=== PATIENT | male | born 1945 | race American Indian/Alaskan Native ===

== ENCOUNTER 2017-08-11 16:11 | Emergency (ER) | payer OTHER ==
[~2017-08-11] VITALS: Ht 162.6 cm; Wt 54.4 kg
[2017-08-11] MEDS ORDERED: CARBAMIDE PEROXIDE 6.5% OTIC SOLUTION 15ML BOTTLE. AS ONE (16:45)
--- NOTE | 2017-08-11 16:55 | PHYS DOC ---
Past Medical History Past Medical History: No Pertinent History Past Surgical History: Other Additional Past Surgical Histo: EYE SURG Alcohol Use: None Drug Use: None Adult General Chief Complaint Chief Complaint: EARACHE/EAR PAIN HPI HPI Patient is a 71 year old male presents to the emergency department stating that he's been having left ear pain and discomfort with decreased hearing. He also states that he's been having a frontal sinus headache as well as a cough this been nonproductive productive. Patient is being provided with interpretation via family member at the bedside. Patient denies any fever, chills or any nausea vomiting. Review of Systems Review of Systems Constitutional: Denies fever or chills [] Eyes: Denies change in visual acuity, redness, or eye pain [] HENT: Denies nasal congestion or sore throat. Complaint of left ear pain and discomfort. Respiratory: Denies cough or shortness of breath [] Cardiovascular: No additional information not addressed in HPI [] GI: Denies abdominal pain, nausea, vomiting, bloody stools or diarrhea [] : Denies dysuria or hematuria [] Musculoskeletal: Denies back pain or joint pain [] Integument: Denies rash or skin lesions [] Neurologic: Denies headache, focal weakness or sensory changes [] Endocrine: Denies polyuria or polydipsia [] Current Medications Current Medications Current Medications Medications (Trade) Dose Ordered Sig/Criselda Start Time Stop Time Status Last Admin Dose Admin Carbamide Peroxide (Debrox) 5 drop 1X ONCE 08/11/17 16:45 08/11/17 16:46 DC 08/11/17 16:45 5 DROP Allergies Allergies Allergies Coded Allergies Type Severity Reaction Last Updated Verified No Known Drug Allergies 08/11/17 No Physical Exam Physical Exam Constitutional: Well developed, well nourished, no acute distress, non-toxic appearance. [] HENT: Normocephalic, atraumatic, bilateral external ears normal, oropharynx moist, no oral exudates, nose normal. Right tympanic membranes appears to be normal, left tympanic membrane unable to visualize due to cerumen impaction. Eyes: PERRLA, EOMI, conjunctiva normal, no discharge. [] Neck: Normal range of motion, no tenderness, supple, no stridor. [] Cardiovascular:Heart rate regular rhythm, no murmur [] Lungs & Thorax: Bilateral breath sounds clear to auscultation [] Skin: Warm, dry, no erythema, no rash. [] Back: No tenderness Extremities: No tenderness, no cyanosis, no clubbing, ROM intact, no edema. [] Neurologic: Alert and oriented X 3, normal motor function, normal sensory function, no focal deficits noted. [] Psychologic: Affect normal, judgement normal, mood normal. [] Current Patient Data Vital Signs Vital Signs Date Time Temp Pulse Resp B/P (MAP) Pulse Ox O2 Delivery O2 Flow Rate FiO2 08/11/17 16:16 97.8 101 22 146/97 (113) 95 Room Air 97.8 EKG EKG [] Radiology/Procedures Radiology/Procedures [] Course & Med Decision Making Course & Med Decision Making Pertinent Labs and Imaging studies reviewed. (See chart for details) Left ear was irrigated with water and hydrogen peroxide after Debrox and then placed. Large chunks of cerumen was obtained. Patient states that he is able to hear out of the ear much better now. The areas very irritated due to the irrigation and the cerumen that was in place. The cerumen appears to be very hard in nature. Patient will be discharged home with ear drops in which she can use to help with the redness and discomfort. Recommended Tylenol or ibuprofen for pain and discomfort. Signs and symptoms to return back to emergency parents been provided. Also recommended Debrox to be used as directed by the polymer materials consultant [id number]. Signs symptoms to return back to emergency prior has been provided. Patient agrees with discharge instructions, treatment regimens and follow-up recommendations. All questions and concerns been answered at patient's bedside. [] Dragon Disclaimer Dragon Disclaimer This electronic medical record was generated, in whole or in part, using a voice recognition dictation system. Departure Departure Impression: Primary Impression: Impacted cerumen of left ear Disposition: 01 HOME, SELF-CARE Condition: STABLE Referrals: KEO SETHI MD (PCP) Patient Instructions: Cerumen Impaction Additional Instructions: Activity as tolerated. Tylenol or ibuprofen for pain and discomfort. Medication as prescribed for the next 5-7 days. Tylenol or ibuprofen for pain and discomfort. You may purchase Debrox [id number] and use as directed by the polymer materials consultant. Follow-up with a primary care physician next 5-7 days. Return back to emergency prior signs symptoms of become worse. Scripts Ciprofloxacin Hcl/Dexameth (CIPRODEX OTIC SUSPENSION) 7.5 Ml Drops.susp 4 DROP BID, #7.5 ML Prov: EDUIN ADAMSON APRN 08/11/17 EDUIN ADAMSON APRN Aug 11, 2017 16:55
[2017-08-11] MEDS ORDERED: CIPR7.5D AS (17:08)
[2017-08-11 17:21] VITALS: BP 111/71
== END 2017-08-11 17:21 | disposition home or self-care (01) ==
LOC: ER 16:11
DX: H61.22 Impacted cerumen, left ear (principal); R05 Cough; R51 Headache
CPT/HCPCS: 69209; 99283

== ENCOUNTER 2017-12-12 19:10 | Emergency (ER) | payer OTHER ==
[2017-12-12 19:43] LABS: ADD MAN DIFF? NO
[2017-12-12 19:47] LABS: BASO % 1 % (0-3); EOS # 0.1 x10^3/uL (0.0-0.7); EOS % 3 % (0-3); HEMATOCRIT 43.4 % (39.0-53.0); LYMPH # 1.5 x10^3/uL (1.0-4.8); LYMPH % 32 % (24-48); MEAN CORPUSCULAR HEMOGLOBIN 30 pg (25-35); MEAN CORPUSCULAR HGB CONC 35 g/dL (31-37); MEAN CORPUSCULAR VOLUME 87 fL (79-100); MONO # 0.4 x10^3/uL (0.0-1.1); MONO % 9 % (0-9); NEUT # 2.7 x10^3uL (1.8-7.7); NEUT % 56 % (31-73); PLATELET COUNT 220 x10^3/uL (140-400); RED BLOOD COUNT 4.99 x10^6/uL (4.30-5.70); RED CELL DISTRIBUTION WIDTH 13.8 % (11.5-14.5); WHITE BLOOD COUNT 4.8 x10^3/uL (4.0-11.0)
[2017-12-12 19:54] LABS: ANION GAP 10 (6-14); BLOOD UREA NITROGEN 10 mg/dL (8-26); BUN/CREATININE RATIO 14 (6-20); CALCIUM 8.4 mg/dL (8.5-10.1); CARBON DIOXIDE 28 mmol/L (21-32); CHLORIDE 102 mmol/L (98-107); CREATININE 0.7 mg/dL (0.7-1.3); GFR 110.5; GLUCOSE 103 mg/dL (70-99); POTASSIUM 3.8 mmol/L (3.5-5.1); SODIUM 140 mmol/L (136-145)
[2017-12-12] MEDS: KETOROLAC 30 MG/ML INJ. IV (19:59)
[2017-12-12] MEDS: IV NORMAL SALINE 1000ML BAG 1,000 ML IV (19:59)
[2017-12-12 20:04] LABS: ALBUMIN 3.5 g/dL (3.4-5.0); ALK PHOS 155 U/L (46-116); ALT (SGPT) 27 U/L (16-63); AST (SGOT) 20 U/L (15-37); TOTAL BILIRUBIN 0.4 mg/dL (0.2-1.0)
[2017-12-12 20:32] LABS: INFLUENZA A PATIENT NEGATIVE (NEGATIVE); INFLUENZA B PATIENT NEGATIVE (NEGATIVE); OBC FLU VALID
== END 2017-12-12 21:02 | disposition home or self-care (01) ==
LOC: ER 19:10
DX: J18.9 Pneumonia, unspecified organism (principal); I10 Essential (primary) hypertension
CPT/HCPCS: 36415; 71045; 80053; 85025; 87804; 87804-59; 96361; 96374; 99285-25; J1885; J7030

== ENCOUNTER 2020-01-06 18:43 | Emergency (ER) | payer OTHER ==
[~2020-01-06] VITALS: Ht 160 cm; Wt 56.7 kg
[~2020-01-06 18:43] MED LIST: AZIT250T6 PO; CIPR7.5D AS
[2020-01-06] MEDS ORDERED: IV NORMAL SALINE 1000ML BAG 1,000 ML IV ONE (21:00)
--- NOTE | 2020-01-06 21:01 | RAD ---
AP chest. HISTORY: Short of breath, cough AP view was taken of the chest. Heart is normal in size. There is no pleural effusion. There are no confluent infiltrates. IMPRESSION: 1. No acute chest disease. Electronically signed by: Paulo Kilgore MD (01/06/2020 8:58 PM) [id number]
--- NOTE | 2020-01-06 21:14 | PHYS DOC ---
Past Medical History Past Medical History: No Pertinent History Past Surgical History: Other Additional Past Surgical Histo: EYE SURG Smoking Status: Former Smoker Alcohol Use: None Drug Use: None Adult General Chief Complaint Chief Complaint: FLU SYMPTOM HPI HPI 74-year-old male presents to the emergency department with multiple complaints. Patient describes fever, headache, elevated blood pressure, weakness, vomiting. Symptoms have been ongoing 3 days. Family states they've been using [id number] medications however has had no improvement. Patient denies any sick contacts. Nothing makes his symptoms better. Patient denies any abdominal pain, chest pain, shortness of breath. Review of Systems Review of Systems Constitutional: Denies fever or chills [] Respiratory: Denies cough or shortness of breath [] Cardiovascular: No additional information not addressed in HPI [] GI: Denies abdominal pain, + nausea, vomiting, no bloody stools or diarrhea [] : Denies dysuria or hematuria [] Musculoskeletal: Denies back pain or joint pain [] Neurologic: Denies headache, focal weakness or sensory changes [] All other systems were reviewed and found to be within normal limits, except as documented in this note. Current Medications Current Medications Current Medications Medications (Trade) Dose Ordered Sig/Criselda Start Time Stop Time Status Last Admin Dose Admin Info (CONTRAST GIVEN -- Rx MONITORING) 1 each PRN DAILY PRN 01/06/20 22:00 01/08/20 21:59 Iohexol (Omnipaque 300 Mg/ml) 75 ml 1X ONCE 01/06/20 22:30 01/06/20 22:31 DC 01/06/20 22:20 75 ML Ketorolac Tromethamine (Toradol 15mg Vial) 15 mg 1X ONCE 01/06/20 22:15 01/06/20 22:16 DC 01/06/20 22:56 15 MG Metoclopramide HCl (Reglan Vial) 10 mg 1X ONCE 01/06/20 22:15 01/06/20 22:16 DC 01/06/20 22:55 10 MG Sodium Chloride 1,000 ml @ 1,000 mls/hr 1X ONCE 01/06/20 21:00 01/06/20 21:59 DC 01/06/20 21:12 1,000 MLS/HR Allergies Allergies Allergies Coded Allergies Type Severity Reaction Last Updated Verified No Known Drug Allergies 08/11/17 No Physical Exam Physical Exam Constitutional: Well developed, well nourished, no acute distress, non-toxic appearance. [] HENT: Normocephalic, atraumatic, bilateral external ears normal, oropharynx moist, no oral exudates, nose normal. [] Eyes: PERRLA, EOMI, conjunctiva normal, no discharge. [] Cardiovascular:Heart rate regular rhythm, no murmur [] Lungs & Thorax: Bilateral breath sounds clear to auscultation [] Abdomen: Bowel sounds normal, soft, no tenderness, no masses, no pulsatile masses. [] Skin: Warm, dry, no erythema, no rash. [] Back: No tenderness, no CVA tenderness. [] Extremities: No tenderness, no edema. [] Neurologic: Alert and oriented X 3, no focal deficits noted. [] Psychologic: Affect normal, judgement normal, mood normal. [] Current Patient Data Vital Signs Vital Signs Date Time Temp Pulse Resp B/P (MAP) Pulse Ox O2 Delivery O2 Flow Rate FiO2 01/06/20 21:44 98.3 99 20 166/98 (120) 92 Room Air 98.3 Lab Values Laboratory Tests Test 01/06/20 20:54 01/06/20 21:11 01/06/20 22:20 Influenza Type A Antigen Negative (NEGATIVE) Influenza Type B Antigen Negative (NEGATIVE) White Blood Count 10.9 x10^3/uL (4.0-11.0) Red Blood Count 5.05 x10^6/uL (4.30-5.70) Hemoglobin 15.3 g/dL (13.0-17.5) Hematocrit 43.5 % (39.0-53.0) Mean Corpuscular Volume 86 fL (79-100) Mean Corpuscular Hemoglobin 30 pg (25-35) Mean Corpuscular Hemoglobin Concent 35 g/dL (31-37) Red Cell Distribution Width 13.8 % (11.5-14.5) Platelet Count 229 x10^3/uL (140-400) Neutrophils (%) (Auto) 83 % (31-73) H Lymphocytes (%) (Auto) 10 % (24-48) L Monocytes (%) (Auto) 6 % (0-9) Eosinophils (%) (Auto) 1 % (0-3) Basophils (%) (Auto) 0 % (0-3) Neutrophils # (Auto) 9.1 x10^3/uL (1.8-7.7) H Lymphocytes # (Auto) 1.1 x10^3/uL (1.0-4.8) Monocytes # (Auto) 0.6 x10^3/uL (0.0-1.1) Eosinophils # (Auto) 0.1 x10^3/uL (0.0-0.7) Basophils # (Auto) 0.0 x10^3/uL (0.0-0.2) Sodium Level 137 mmol/L (136-145) Potassium Level 4.1 mmol/L (3.5-5.1) Chloride Level 102 mmol/L (98-107) Carbon Dioxide Level 24 mmol/L (21-32) Anion Gap 11 (6-14) Blood Urea Nitrogen 8 mg/dL (8-26) Creatinine 0.8 mg/dL (0.7-1.3) Estimated GFR (Cockcroft-Gault) 94.2 BUN/Creatinine Ratio 10 (6-20) Glucose Level 106 mg/dL (70-99) H Calcium Level 8.6 mg/dL (8.5-10.1) Total Bilirubin 0.6 mg/dL (0.2-1.0) Aspartate Amino Transferase (AST) 34 U/L (15-37) Alanine Aminotransferase (ALT) 33 U/L (16-63) Alkaline Phosphatase 180 U/L (46-116) H Total Protein 7.3 g/dL (6.4-8.2) Albumin 3.4 g/dL (3.4-5.0) Albumin/Globulin Ratio 0.9 (1.0-1.7) L Urine Collection Type Unknown Urine Color Yellow Urine Clarity Clear Urine pH 7.0 Urine Specific [place] 1.010 Urine Protein Negative mg/dL (NEG-TRACE) Urine Glucose (UA) Negative mg/dL (NEG) Urine Ketones (Stick) Negative mg/dL (NEG) Urine Blood Negative (NEG) Urine Nitrite Negative (NEG) Urine Bilirubin Negative (NEG) Urine Urobilinogen Dipstick 0.2 mg/dL (0.2 mg/dL) Urine Leukocyte Esterase Moderate (NEG) Urine RBC Rare /HPF (0-2) Urine WBC 11-20 /HPF (0-4) Urine Squamous Epithelial Cells Few /LPF Urine Amorphous Sediment Present /HPF Urine Bacteria 0 /HPF (0-FEW) Urine Mucus Slight /LPF Laboratory Tests 01/06/20 21:11 Laboratory Tests 01/06/20 21:11 EKG EKG [] Radiology/Procedures Radiology/Procedures [facility] [address] [place] [address] IMAGING REPORT Signed PATIENT: LIDYA VARGAS ACCOUNT: [id number] : 1945 LOCATION: ER AGE: 74 SEX: M EXAM STATUS: REG ER ORD. PHYSICIAN: LEIGHTON REYES MD REASON: SOB/COugh PROCEDURE: CHEST AP ONLY AP chest. HISTORY: Short of breath, cough AP view was taken of the chest. Heart is normal in size. There is no pleural effusion. There are no confluent infiltrates. IMPRESSION: 1. No acute chest disease. Electronically signed by: Paulo Kilgore MD (01/06/2020 8:58 PM) [id number] DICTATED and SIGNED BY: PAULO KILGORE MD DATE: 01/06/202057 [] [facility] [address] [place] [address] IMAGING REPORT Signed PATIENT: LIDYA VARGAS ACCOUNT: [id number] : 1945 LOCATION: ER AGE: 74 SEX: M EXAM STATUS: REG ER ORD. PHYSICIAN: LEIGHTON REYES MD REASON: abdominal pain, fever, OMNI 300, 75 ML IV PROCEDURE: CT ABD PELV W/ IV CONTRST ONLY Exam: CT of abdomen and pelvis with contrast INDICATION: Abdominal pain TECHNIQUE: Sequential axial images through the abdomen and pelvis obtained following the administration of 75 mL of Omni 300 IV contrast. Sagittal and coronal reformatted images were reconstructed from the axial data and reviewed. Comparisons: None FINDINGS: Heart size is normal. No pericardial effusion. Patchy airspace disease at the dependent portion the lungs bilaterally, likely atelectasis. No pleural effusion Or, spleen, pancreas, gallbladder and adrenals are unremarkable. Kidneys demonstrate symmetric enhancement. No perinephric inflammation or hydronephrosis. No renal or ureteral calculi are identified. Bladder is distended and appears thin-walled. Prostate is not enlarged. Large and small bowel are unremarkable. Appendix is normal. No free abdominal air or fluid. No obstruction. Abdominal aorta has a normal course and caliber. Abdominal vasculature is patent. No enlarged abdominal lymph nodes are identified. Wedging of the L1 vertebral body. No suspicious osseous lesions. IMPRESSION: No acute process identified in the abdomen or pelvis. Exposure: One or more of the following in the visualized dose reduction techniques were utilized for this examination: 1. Automated exposure control 2. Adjustment of the MA and/or KV according to patient size 3. Use of iterative of reconstructive technique Electronically signed by: Mini Hamilton MD (01/06/2020 10:56 PM) [id number] DICTATED and SIGNED BY: MINI HAMILTON MD DATE: 01/06/20 2256 Course & Med Decision Making Course & Med Decision Making Pertinent Labs and Imaging studies reviewed. (See chart for details) []74-year-old male presents to the emergency department with multiple complaints. Patient describes fever, headache, elevated blood pressure, weakness, vomiting. Symptoms have been ongoing 3 days. Family states they've been using [id number] medications however has had no improvement. Patient denies any sick contacts. Nothing makes his symptoms better. Patient denies any abdominal pain, chest pain, shortness of breath. Labs/Imaging reviewed No acute findings on lab to account for symptoms Likely viral in nature Thumb spica splint placed to right thumb Recommend dc home Dragon Disclaimer Dragon Disclaimer This electronic medical record was generated, in whole or in part, using a voice recognition dictation system. Departure Departure Impression: Primary Impression: Viral syndrome Additional Impression: Thumb fracture Disposition: 01 HOME, SELF-CARE Condition: STABLE Referrals: KEO SETHI MD (PCP) Patient Instructions: Thumb Fracture, Viral Syndrome Additional Instructions: CT of abdomen and pelvis negative Xray of right thumb with fracture - thumb spica applied Ortho follow up - Dr. Shoshana Fam without acute signs of infection on exam Tylenol/Motrin as needed for pain/fever Return to the ER with worsening symptoms, altered mental status Problem Qualifiers Additional Impression: Thumb fracture Encounter type: initial encounter Fracture type: closed Phalanx: distal Fracture alignment: nondisplaced Laterality: right Qualified Codes: S62.524A - Nondisplaced fracture of distal phalanx of right thumb, initial encounter for closed fracture LEIGHTON REYES MD Jan 06, 2020 21:14
[2020-01-06 21:15] LABS: INFLUENZA A PATIENT NEGATIVE (NEGATIVE); INFLUENZA B PATIENT NEGATIVE (NEGATIVE)
[2020-01-06 21:30] LABS: BASO % 0 % (0-3); CALCIUM 8.6 mg/dL (8.5-10.1); CREATININE 0.8 mg/dL (0.7-1.3); EOS # 0.1 x10^3/uL (0.0-0.7); EOS % 1 % (0-3); GFR 94.2; HEMATOCRIT 43.5 % (39.0-53.0); HEMOGLOBIN 15.3 g/dL (13.0-17.5); LYMPH # 1.1 x10^3/uL (1.0-4.8); LYMPH % 10 % (24-48); MEAN CORPUSCULAR HEMOGLOBIN 30 pg (25-35); MEAN CORPUSCULAR HGB CONC 35 g/dL (31-37); MEAN CORPUSCULAR VOLUME 86 fL (79-100); MONO # 0.6 x10^3/uL (0.0-1.1); MONO % 6 % (0-9); NEUT # 9.1 x10^3/uL (1.8-7.7); NEUT % 83 % (31-73); PLATELET COUNT 229 x10^3/uL (140-400); POTASSIUM 4.1 mmol/L (3.5-5.1); RED BLOOD COUNT 5.05 x10^6/uL (4.30-5.70); RED CELL DISTRIBUTION WIDTH 13.8 % (11.5-14.5); WHITE BLOOD COUNT 10.9 x10^3/uL (4.0-11.0)
[2020-01-06 21:35] LABS: ALBUMIN 3.4 g/dL (3.4-5.0); ALBUMIN/GLOBULIN RATIO 0.9 (1.0-1.7); TOTAL BILIRUBIN 0.6 mg/dL (0.2-1.0); TOTAL PROTEIN 7.3 g/dL (6.4-8.2)
[2020-01-06] MEDS ORDERED: CONTRAST GIVEN. MC PRN (22:00)
[2020-01-06] MEDS ORDERED: METOCLOPRAMIDE HCL 10 MG/2 ML VIAL. IVP ONE (22:15)
[2020-01-06] MEDS ORDERED: KETOROLAC 15 MG/ML VIAL. IVP ONE (22:15)
[2020-01-06] MEDS ORDERED: IOHEXOL 300 MG/ML 100ML VIAL. IV ONE (22:30)
[2020-01-06 22:53] LABS: BILIRUBIN,URINE NEGATIVE (NEG); CLARITY,URINE CLEAR; COLOR,URINE YELLOW; NITRITE,URINE NEGATIVE (NEG); PROTEIN,URINE NEGATIVE (NEG-TRACE); UROBILINOGEN,URINE 0.2 mg/dL (0.2 mg/dL)
[2020-01-06 22:57] LABS: SQUAMOUS EPITHELIAL CELL,UR FEW /LPF
[2020-01-06 22:58] LABS: AMORPHOUS SEDIMENT,UR PRESENT /HPF; BACTERIA,URINE 0 /HPF (0-FEW); RBC,URINE RARE /HPF (0-2)
--- NOTE | 2020-01-06 22:59 | RAD ---
Exam: CT of abdomen and pelvis with contrast INDICATION: Abdominal pain TECHNIQUE: Sequential axial images through the abdomen and pelvis obtained following the administration of 75 mL of Omni 300 IV contrast. Sagittal and coronal reformatted images were reconstructed from the axial data and reviewed. Comparisons: None FINDINGS: Heart size is normal. No pericardial effusion. Patchy airspace disease at the dependent portion the lungs bilaterally, likely atelectasis. No pleural effusion Or, spleen, pancreas, gallbladder and adrenals are unremarkable. Kidneys demonstrate symmetric enhancement. No perinephric inflammation or hydronephrosis. No renal or ureteral calculi are identified. Bladder is distended and appears thin-walled. Prostate is not enlarged. Large and small bowel are unremarkable. Appendix is normal. No free abdominal air or fluid. No obstruction. Abdominal aorta has a normal course and caliber. Abdominal vasculature is patent. No enlarged abdominal lymph nodes are identified. Wedging of the L1 vertebral body. No suspicious osseous lesions. IMPRESSION: No acute process identified in the abdomen or pelvis. Exposure: One or more of the following in the visualized dose reduction techniques were utilized for this examination: 1. Automated exposure control 2. Adjustment of the MA and/or KV according to patient size 3. Use of iterative of reconstructive technique Electronically signed by: Mini Carey MD (01/06/2020 10:56 PM) [id number]
[2020-01-06] MEDS ORDERED: CEPH-264 PO (23:19)
[2020-01-06 23:23] VITALS: BP 132/79
--- NOTE | 2020-01-06 23:49 | RAD ---
Study: HAND RIGHT 2V Indication: Thumb injury. Comparison: None. Findings: Tiny focus of mineralization along the radial margin of the thumb MCP joint. No malalignment across this articulation. Mild prominence of the overlying soft tissues. Scattered relatively mild degenerative changes. Impression: Tiny focus of mineralization seen along the radial margin of the thumb MCP joint could conceivably represent an avulsion fracture fragment given mild prominence of the overlying soft tissues. No traumatic malalignment across this joint or elsewhere. Electronically signed by: COLIN WADSWORTH MD (01/06/2020 11:46 PM) [id number]
== END 2020-01-06 23:37 | disposition home or self-care (01) ==
LOC: ER 18:43
DX: S62.524A Nondisplaced fracture of distal phalanx of right thumb, initial encounter for closed fracture (principal); B34.9 Viral infection, unspecified; R11.2 Nausea with vomiting, unspecified; R50.9 Fever, unspecified; F17.200 Nicotine dependence, unspecified, uncomplicated; Z98.890 Other specified postprocedural states; X58.XXXA Exposure to other specified factors, initial encounter; Y93.89 Activity, other specified; Y92.89 Other specified places as the place of occurrence of the external cause; Y99.8 Other external cause status
CPT/HCPCS: 29125; 36415; 71045; 73120; 74177; 80053; 81001; 83605; 85025; 87086; 87804; 96361; 96374; 96375; 99285; J1885; J2765; J7030; Q9967

== ENCOUNTER 2020-09-27 20:58 | Emergency (ER) | payer OTHER ==
[~2020-09-27] VITALS: Ht 167.6 cm; Wt 77.0 kg
[~2020-09-27 20:58] MED LIST changes: +CEPH-264 PO
--- NOTE | 2020-09-27 21:07 | PHYS DOC ---
Past Medical History Past Medical History: No Pertinent History, Hypertension Past Surgical History: Other Additional Past Surgical Histo: EYE SURG Smoking Status: Former Smoker (QUIT MANY YEARS AGO) Alcohol Use: None Drug Use: None General Adult EDM: Chief Complaint: CHEST PAIN HPI: HPI: Patient is a 74 year old male who arrives with a chief complaint of left-sided abdominal pain. Pain began last night and is located left lower quadrant and radiates to the epigastric area. Pain is worse with palpation and movement. Patient had some nausea vomiting but no diarrhea. Patient also has some radiation of pain to the chest. Patient denies any shortness of breath. Patient denies any recent illnesses. Daughter states that he has had a cough for many months. Pain is moderate in severity becomes severe with palpation. Pain is described as a discomfort Review of Systems: Review of Systems: Constitutional: Denies fever or chills. [] Eyes: Denies change in visual acuity. [] HENT: Denies nasal congestion or sore throat. [] Respiratory: Denies cough or shortness of breath. [] Cardiovascular: Has some pain in the chest which radiates from abdomen GI: Complains of abdominal pain, nausea, vomiting but no diarrhea or blood in stools : Denies dysuria. [] Musculoskeletal: Denies back pain or joint pain. [] Integument: Denies rash. [] Neurologic: Denies headache, focal weakness or sensory changes. [] Endocrine: Denies polyuria or polydipsia. [] Lymphatic: Denies swollen glands. [] Psychiatric: Denies depression or anxiety. [] Heart Score: HEART Score for Chest Pain: HEART Score for Chest Pain Response (Comments) Value History Slighlty/Non-Suspicious 0 ECG Normal 0 Age > 65 2 Risk Factors 1 or 2 Risk Factors 1 Troponin < Normal Limit 0 Total 3 Risk Factors: Risk Factors: DM, Current or recent (<one month) smoker, HTN, HLP, family history of CAD, obesity. Risk Scores: Score 0 - 3: 2.5% MACE over next 6 weeks - Discharge Home Score 4 - 6: 20.3% MACE over next 6 weeks - Admit for Clinical Observation Score 7 - 10: 72.7% MACE over next 6 weeks - Early Invasive Strategies Current Medications: Current Medications Morphine Sulfate (Morphine Sulfate) 4 mg 1X ONCE IV Last administered on 11/5/20at 21:39; Start 09/27/20 at 21:30; Stop 09/27/20 at 21:31; Status DC Ondansetron HCl (Zofran) 4 mg 1X ONCE IVP Last administered on 09/27/20at 21:40; Start 09/27/20 at 21:30; Stop 09/27/20 at 21:31; Status DC Sodium Chloride 1,000 ml @ 1,000 mls/hr 1X ONCE IV Last administered on 09/27/20at 21:38; Start 09/27/20 at 21:30; Stop 09/27/20 at 22:29; Status DC Iohexol (Omnipaque 300 Mg/ml) 75 ml 1X ONCE IV Last administered on 09/27/20at 22:06; Start 09/27/20 at 22:00; Stop 09/27/20 at 22:01; Status DC Info (CONTRAST GIVEN -- Rx MONITORING) 1 each PRN DAILY PRN MC SEE COMMENTS; Start 09/27/20 at 22:00; Stop 09/29/20 at 21:59 Active Scripts Active Keflex (Cephalexin) 500 Mg Capsule 2 Cap PO Q12HR 5 Days Azithromycin Tablet (Azithromycin) 250 Mg Tablet 1 Pkg PO UD Ciprodex Otic Suspension (Ciprofloxacin Hcl/Dexameth) 7.5 Ml Drops.susp 4 Drop BID Allergies: Allergies: Allergies Coded Allergies Type Severity Reaction Last Updated Verified No Known Drug Allergies 08/11/17 No Physical Exam: PE: Constitutional: Well developed, well nourished, no acute distress, non-toxic appearance. [] HENT: Normocephalic, atraumatic, bilateral external ears normal, no trismus, nose normal. [] Eyes: PERRLA, EOMI, conjunctiva normal, no discharge. [] Neck: Normal range of motion, no tenderness, supple, no stridor. [] Cardiovascular:Heart rate regular rhythm, peripheral pulse intact cap refill is brisk Lungs & Thorax: Bilateral breath sounds clear, no respiratory distress Abdomen: Soft with moderate left lower quadrant tenderness without guarding or rebound. Possibly mildly distended bladder no pulsatile masses Skin: Warm, dry, no erythema, scattered abrasions to the abdomen chest and left upper extremity, no signs of superinfection Back: No tenderness, no CVA tenderness. [] Extremities: No tenderness, no cyanosis, no clubbing, ROM intact, no edema. [] Neurologic: Alert and oriented X 3, normal motor function, normal sensory fun ction, no focal deficits noted. [] Psychologic: Affect normal, judgement normal, mood normal. [] Current Patient Data: Labs: Laboratory Tests Test 09/27/20 21:10 09/27/20 22:35 White Blood Count 5.7 x10^3/uL Red Blood Count 4.96 x10^6/uL Hemoglobin 14.9 g/dL Hematocrit 42.6 % Mean Corpuscular Volume 86 fL Mean Corpuscular Hemoglobin 30 pg Mean Corpuscular Hemoglobin Concent 35 g/dL Red Cell Distribution Width 14.0 % Platelet Count 236 x10^3/uL Neutrophils (%) (Auto) 62 % Lymphocytes (%) (Auto) 28 % Monocytes (%) (Auto) 8 % Eosinophils (%) (Auto) 2 % Basophils (%) (Auto) 1 % Neutrophils # (Auto) 3.5 x10^3/uL Lymphocytes # (Auto) 1.6 x10^3/uL Monocytes # (Auto) 0.4 x10^3/uL Eosinophils # (Auto) 0.1 x10^3/uL Basophils # (Auto) 0.0 x10^3/uL Sodium Level 140 mmol/L Potassium Level 4.0 mmol/L Chloride Level 104 mmol/L Carbon Dioxide Level 25 mmol/L Anion Gap 11 Blood Urea Nitrogen 9 mg/dL Creatinine 0.7 mg/dL Estimated GFR (Cockcroft-Gault) 109.9 BUN/Creatinine Ratio 13 Glucose Level 116 mg/dL Lactic Acid Level 1.4 mmol/L Calcium Level 8.6 mg/dL Total Bilirubin 0.3 mg/dL Aspartate Amino Transf (AST/SGOT) 16 U/L Alanine Aminotransferase (ALT/SGPT) 20 U/L Alkaline Phosphatase 161 U/L Troponin I Quantitative < 0.017 ng/mL Total Protein 6.6 g/dL Albumin 3.5 g/dL Albumin/Globulin Ratio 1.1 Lipase 131 U/L Urine Collection Type Unknown Urine Color Yellow Urine Clarity Clear Urine pH 6.0 Urine Specific [place] 1.025 Urine Protein Negative mg/dL Urine Glucose (UA) Negative mg/dL Urine Ketones (Stick) Negative mg/dL Urine Blood Negative Urine Nitrite Negative Urine Bilirubin Negative Urine Urobilinogen Dipstick 0.2 mg/dL Urine Leukocyte Esterase Negative Urine RBC 0 /HPF Urine WBC 0 /HPF Urine Squamous Epithelial Cells Few /LPF Urine Bacteria 0 /HPF Current Medications Medications (Trade) Dose Ordered Sig/Criselda Route PRN Reason Start Time Stop Time Status Last Admin Dose Admin Morphine Sulfate (Morphine Sulfate) 4 mg 1X ONCE IV 09/27/20 21:30 09/27/20 21:31 DC 09/27/20 21:39 Ondansetron HCl (Zofran) 4 mg 1X ONCE IVP 09/27/20 21:30 09/27/20 21:31 DC 09/27/20 21:40 Sodium Chloride 1,000 ml @ 1,000 mls/hr 1X ONCE IV 09/27/20 21:30 09/27/20 22:29 DC 09/27/20 21:38 Iohexol (Omnipaque 300 Mg/ml) 75 ml 1X ONCE IV 09/27/20 22:00 09/27/20 22:01 DC 09/27/20 22:06 Info (CONTRAST GIVEN -- Rx MONITORING) 1 each PRN DAILY PRN MC SEE COMMENTS 09/27/20 22:00 09/29/20 21:59 Vital Signs: Vital Signs Date Time Temp Pulse Resp B/P (MAP) Pulse Ox O2 Delivery O2 Flow Rate FiO2 09/27/20 21:39 16 09/27/20 21:20 98.2 77 16 159/86 (110) 98 Room Air 98.2 EKG: EKG: [] EKG interpreted by me normal sinus rhythm with left axis deviation, normal intervals normal ST segments, rate of 82 Radiology/Procedures: Radiology/Procedures: [][facility] [address] [place], [place] [id number] IMAGING REPORT Signed PATIENT: LIDYA VARGAS ACCOUNT: [id number] : 1945 LOCATION: ER AGE: 74 SEX: M EXAM STATUS: REG ER ORD. PHYSICIAN: ZEENAT ARRIAGA MD REASON: LLQ PAIN PROCEDURE: CT ABD PELV W/ IV CONTRST ONLY Exam: CT abdomen/pelvis with intravenous contrast Indication: Left lower quadrant pain Comparison: CT abdomen and pelvis 01/06/2020 Technique: Helical CT imaging performed of the abdomen and pelvis after the intravenous administration of 75 mL Omnipaque 300 intravenous contrast. Sagittal and coronal reformats were obtained. One or more of the following individualized dose reduction techniques were utilized for this examination: 1. Automated exposure control 2. Adjustment of the mA and/or kV according to patient size 3. Use of iterative reconstruction technique. Findings: Lower chest: There are unchanged dependent groundglass opacities in the lower lobes. The heart is normal in size. Liver: Normal. Gallbladder/Biliary Tree: Normal. Pancreas: Normal. Spleen: Normal. Adrenal Glands: Normal. Kidneys/Ureters/Bladder: Kidneys are normal in size and enhance symmetrically. There is a subcentimeter hypodensity in the right kidney, likely simple cyst. No hydronephrosis. Ureters and bladder are unremarkable. Reproductive Organs: Prostate gland is mildly enlarged. Stomach, small bowel, and colon: Stomach is mildly distended. No small bowel obstruction. The appendix and colon are normal. Vasculature: Abdominal aorta is normal in caliber. Mild calcified aortoiliac atherosclerosis. Lymph Nodes: No lymphadenopathy. Peritoneum and retroperitoneum: No free fluid or free air. Bones: The bones are diffusely demineralized. There is an old L1 compression fracture with 75% vertebral body height loss anteriorly and 3 mm retropulsion of the posterior cortex. There is focal kyphosis at T12-L1. This is all unchanged from 01/06/2020.. Impression: No acute intra-abdominal/pelvic abnormality. Electronically signed by: Keyanna Dorsey MD (09/27/2020 10:47 PM) [id number] DICTATED and SIGNED BY: KEYANNA DORSEY MD DATE: 09/27/20 2247 [facility] [address] [place] [address] IMAGING REPORT Signed PATIENT: LIDYA VARGAS ACCOUNT: [id number] : 1945 LOCATION: ER AGE: 74 SEX: M EXAM STATUS: REG ER ORD. PHYSICIAN: ZEENAT ARRIAGA MD REASON: LLQ PAIN PROCEDURE: PORTABLE CHEST 1V EXAM: PORTABLE CHEST 1V 09/27/2020 9:13 PM CLINICAL INDICATION:Left lower quadrant pain COMPARISON:Chest radiograph 01/06/2020 TECHNIQUE:AP view of the chest FINDINGS:The heart and mediastinum are normal. Lungs are adequately expanded. There is mild bibasilar opacities. No pleural effusion or pneumothorax. An L1 compression fracture is redemonstrated. IMPRESSION:Mild bibasilar opacities, possibly atelectasis. Electronically signed by: Keyanna Dorsey MD (09/27/2020 11:38 PM) [id number] DICTATED and SIGNED BY: KEYANNA DORSEY MD DATE: 09/27/20 2338 Course & Med Decision Making: Course & Med Decision Making Pertinent Labs and Imaging studies reviewed. (See chart for details) [] 74-year-old male presents with abdominal pain. Patient has a soft and nonsurgical abdomen. But due to patient's age CT was done, the CT was u nremarkable for acute pathology although my review of his it appears his bladder was large. Nurses notes that he was not able to void much when he gave us a urine sample. Therefore a Wang catheter has been placed patient reassessed after Wang placed and pain is gone in his abdomen, his abdomen is soft nontender patient will go home with a Wang and a leg bag and follow-up with urology. Patient had some pain rating to his chest from his abdomen, this is very typical his heart score is 3, his EKG and troponin are unremarkable. Doubt acute coronary syndrome. Patient's white blood cells and lactic acid were normal, doubt ischemic colitis. Dragon Disclaimer: Dragon Disclaimer: This electronic medical record was generated, in whole or in part, using a voice recognition dictation system. Departure Departure Impression: Primary Impression: Abdominal pain Additional Impression: Urinary retention Disposition: 01 DC HOME SELF CARE/HOMELESS Condition: STABLE Ref[facility]: [facility] [address] [place] [address] KEO SETHI MD (PCP) Patient Instructions: Abdominal Pain, Wang Catheter Care, Adult, Urinary Retention, Acute, Male Additional Instructions: EMERGENCY DEPARTMENT GENERAL DISCHARGE INSTRUCTIONS THANK YOU for coming to [facility] Emergency Department (ED) today and trusting us with your care. We trust that you had a positive experience in our Emergency Department. If you wish to speak to the department Management you can contact [facility] supervisor forming department at . YOUR FOLLOW UP INSTRUCTIONS ARE FOLLOWS: Do you have a private doctor? If you do not have a private doctor, please ask for a resource list of physicians or clinics that may be able to assist you with follow up care. The Emergency Physician has interpreted your x-rays. The X-ray specialist will also review them. If there is a change in the findings you will be notified in 48 hours when at all possible. A lab test or lab culture may have been done, your results will be reviewed and you will be notified if you need a change in treatment. ADDITIONAL INSTRUCTIONS AND INFORMATION Your care today has been supervised by a physician who is specially trained in emergency care. Many problems require more than one evaluation for a complete diagnosis and treatment. We recommend that you schedule your follow up appointment as recommended to ensure complete treatment of your illness or injury. If you are unable to obtain follow up care and continue to have a problem, or if your condition worsens we recommend that you return to the ED. We are not able to safely determine your condition over the phone nor are we able to give sound medical advice over the phone. For these safety reasons, if you call for medical advice we will ask you to come to the ED for further evaluation If you have any questions regarding these discharge instructions please call the ED at . SAFETY INFORMATION In the interest of safety, wellness, and injury prevention; we encourage you to wear your seatbelt, if you smoke; quit smoking, and we encourage your family to use protective helmet for bicycling and other sporting events that present an increased risk for head injury. IF YOUR SYMPTOMS WORSEN OR NEW SYMPTOMS DEVELOP, OR YOU HAVE CONCERNS ABOUT YOUR CONDITION; OR IF YOUR CONDITION WORSENS WHILE YOU ARE WAITING FOR YOUR FOLLOW UP APPOIN TMENT; EITHER CONTACT YOUR PRIMARY CARE DOCTOR, THE PHYSICIAN WHOSE NAME AND NUMBER YOU WERE GIVEN, OR RETURN TO THE ED IMMEDIATELY. Follow-up with urology next week for catheter removal. Return if concerns, fever, worsening pain. Scripts Tamsulosin Hcl (FLOMAX) 0.4 Mg Cap.er.24h 0.4 MG PO DAILY for 7 Days, #7 TAB Prov: ZEENAT ARRIAGA MD 09/28/20 Hyoscyamine Sulfate (LEVSIN-SL) 0.125 Mg Tab.subl 0.125 MG SL Q6HRS for SPASM for 3 Days, #12 TAB Prov: ZEENAT ARRIAGA MD 09/28/20 ZEENAT ARRIAGA MD Sep 27, 2020 21:07
[2020-09-27 21:22] LABS: BASO % 1 % (0-3); EOS # 0.1 x10^3/uL (0.0-0.7); EOS % 2 % (0-3); HEMATOCRIT 42.6 % (39.0-53.0); HEMOGLOBIN 14.9 g/dL (13.0-17.5); LYMPH # 1.6 x10^3/uL (1.0-4.8); LYMPH % 28 % (24-48); MEAN CORPUSCULAR HEMOGLOBIN 30 pg (25-35); MEAN CORPUSCULAR HGB CONC 35 g/dL (31-37); MEAN CORPUSCULAR VOLUME 86 fL (79-100); MONO # 0.4 x10^3/uL (0.0-1.1); MONO % 8 % (0-9); NEUT # 3.5 x10^3/uL (1.8-7.7); NEUT % 62 % (31-73); PLATELET COUNT 236 x10^3/uL (140-400); RED BLOOD COUNT 4.96 x10^6/uL (4.30-5.70); WHITE BLOOD COUNT 5.7 x10^3/uL (4.0-11.0)
[2020-09-27] MEDS ORDERED: ONDANSETRON PF 4 MG/2 ML VIAL. IVP ONE (21:30)
[2020-09-27] MEDS ORDERED: IV NORMAL SALINE 1000ML BAG 1,000 ML IV ONE (21:30)
[2020-09-27] MEDS ORDERED: MORPHINE SULFATE 4 MG/ML VIAL. IV ONE (21:30)
[2020-09-27 21:31] LABS: CALCIUM 8.6 mg/dL (8.5-10.1); CREATININE 0.7 mg/dL (0.7-1.3); GFR 109.9
[2020-09-27 21:36] LABS: ALBUMIN 3.5 g/dL (3.4-5.0); ALBUMIN/GLOBULIN RATIO 1.1 (1.0-1.7); TOTAL BILIRUBIN 0.3 mg/dL (0.2-1.0); TOTAL PROTEIN 6.6 g/dL (6.4-8.2)
[2020-09-27] MEDS ORDERED: IOHEXOL 300 MG/ML 100ML VIAL. IV ONE (22:00)
[2020-09-27] MEDS ORDERED: CONTRAST GIVEN. MC PRN (22:00)
[2020-09-27 22:43] LABS: BILIRUBIN,URINE NEGATIVE (NEG); CLARITY,URINE CLEAR; COLOR,URINE YELLOW; NITRITE,URINE NEGATIVE (NEG); PROTEIN,URINE NEGATIVE (NEG-TRACE); UROBILINOGEN,URINE 0.2 mg/dL (0.2 mg/dL)
[2020-09-27 22:49] LABS: BACTERIA,URINE 0 /HPF (0-FEW); RBC,URINE 0 /HPF (0-2); WBC,URINE 0 /HPF (0-4)
--- NOTE | 2020-09-27 22:50 | RAD ---
Exam: CT abdomen/pelvis with intravenous contrast Indication: Left lower quadrant pain Comparison: CT abdomen and pelvis 01/06/2020 Technique: Helical CT imaging performed of the abdomen and pelvis after the intravenous administration of 75 mL Omnipaque 300 intravenous contrast. Sagittal and coronal reformats were obtained. One or more of the following individualized dose reduction techniques were utilized for this examination: 1. Automated exposure control 2. Adjustment of the mA and/or kV according to patient size 3. Use of iterative reconstruction technique. Findings: Lower chest: There are unchanged dependent groundglass opacities in the lower lobes. The heart is normal in size. Liver: Normal. Gallbladder/Biliary Tree: Normal. Pancreas: Normal. Spleen: Normal. Adrenal Glands: Normal. Kidneys/Ureters/Bladder: Kidneys are normal in size and enhance symmetrically. There is a subcentimeter hypodensity in the right kidney, likely simple cyst. No hydronephrosis. Ureters and bladder are unremarkable. Reproductive Organs: Prostate gland is mildly enlarged. Stomach, small bowel, and colon: Stomach is mildly distended. No small bowel obstruction. The appendix and colon are normal. Vasculature: Abdominal aorta is normal in caliber. Mild calcified aortoiliac atherosclerosis. Lymph Nodes: No lymphadenopathy. Peritoneum and retroperitoneum: No free fluid or free air. Bones: The bones are diffusely demineralized. There is an old L1 compression fracture with 75% vertebral body height loss anteriorly and 3 mm retropulsion of the posterior cortex. There is focal kyphosis at T12-L1. This is all unchanged from 01/06/2020.. Impression: No acute intra-abdominal/pelvic abnormality. Electronically signed by: Keyanna Dorsey MD (09/27/2020 10:47 PM) [id number]
--- NOTE | 2020-09-27 23:41 | RAD ---
EXAM: PORTABLE CHEST 1V 09/27/2020 9:13 PM CLINICAL INDICATION:Left lower quadrant pain COMPARISON:Chest radiograph 01/06/2020 TECHNIQUE:AP view of the chest FINDINGS:The heart and mediastinum are normal. Lungs are adequately expanded. There is mild bibasilar opacities. No pleural effusion or pneumothorax. An L1 compression fracture is redemonstrated. IMPRESSION:Mild bibasilar opacities, possibly atelectasis. Electronically signed by: Keyanna Dorsey MD (09/27/2020 11:38 PM) [id number]
[2020-09-28] MEDS ORDERED: HYOS0.1265 SL (00:46)
[2020-09-28] MEDS ORDERED: TAMS0.4C97 PO (00:46)
[2020-09-28 01:25] VITALS: BP 133/88
== END 2020-09-28 01:35 | disposition home or self-care (01) ==
LOC: ER 20:58
DX: R33.9 Retention of urine, unspecified (principal); R10.32 Left lower quadrant pain; R11.2 Nausea with vomiting, unspecified; R05 Cough; I10 Essential (primary) hypertension; Z87.891 Personal history of nicotine dependence; Z98.890 Other specified postprocedural states
CPT/HCPCS: 36415; 51702; 71045; 74177; 80053; 81001; 83605; 83690; 84484; 85025; 96361; 96374; 96375; 99285; J2270; J2405; J7030; Q9967

== ENCOUNTER 2021-06-09 21:54 | Emergency (ER) | payer OTHER ==
[~2021-06-09] VITALS: Ht 165.1 cm; Wt 64.5 kg
[~2021-06-09 21:54] MED LIST changes: +HYOS0.1265 SL; +TAMS0.4C97 PO
[2021-06-09] MEDS ORDERED: VANCOMYCIN PER PHARMACY MC PRN (22:30)
[2021-06-10 00:04] LABS: BASO % 0 % (0-3); EOS # 0.1 x10^3/uL (0.0-0.7); EOS % 2 % (0-3); HEMATOCRIT 44.8 % (39.0-53.0); HEMOGLOBIN 15.5 g/dL (13.0-17.5); LYMPH # 1.4 x10^3/uL (1.0-4.8); LYMPH % 23 % (24-48); MEAN CORPUSCULAR HEMOGLOBIN 30 pg (25-35); MEAN CORPUSCULAR HGB CONC 35 g/dL (31-37); MEAN CORPUSCULAR VOLUME 87 fL (79-100); MONO # 0.5 x10^3/uL (0.0-1.1); MONO % 8 % (0-9); NEUT % 67 % (31-73); PLATELET COUNT 236 x10^3/uL (140-400); RED BLOOD COUNT 5.17 x10^6/uL (4.30-5.70); RED CELL DISTRIBUTION WIDTH 13.5 % (11.5-14.5)
[2021-06-10 00:11] LABS: CALCIUM 8.9 mg/dL (8.5-10.1); CREATININE 0.7 mg/dL (0.7-1.3); GFR 109.6; POTASSIUM 3.9 mmol/L (3.5-5.1)
[2021-06-10 00:25] LABS: ALBUMIN 3.6 g/dL (3.4-5.0); TOTAL BILIRUBIN 0.5 mg/dL (0.2-1.0); TOTAL PROTEIN 7.1 g/dL (6.4-8.2)
[2021-06-10] MEDS ORDERED: IOHEXOL 300 MG/ML 100ML VIAL. IV ONE (00:45)
[2021-06-10] MEDS ORDERED: CONTRAST GIVEN. MC PRN (00:45)
--- NOTE | 2021-06-10 00:51 | RAD ---
CT NECK SOFT TISSUE WITH IV CONTRAST DATE: 06/09/2021 12:15 AM INDICATION: anterior neck rash/cellulitis TECHNIQUE: Axial computed tomography of the neck with intravenous contrast according to the standard neck protocol. 70 cc of Omnipaque 300 was administered intravenously. One or more of the following do se reduction techniques were utilized: Automated exposure control (AEC), Adjustment of mA and/or kV according to patient size, Use of iterative reconstruction technique such as ASiR, CT scan done accor ding to ALARA and image gently/image wisely COMPARISON: None. FINDINGS: No fluid collection. Scattered subcentimeter lymph nodes are seen in the neck. None are pathologicall y enlarged or abnormally enhancing. The parotid, submandibular, and thyroid glands are normal. The mu scles of the neck are normal. Vessels of the neck demonstrate normal course, caliber, and enhancement . Several dental caries are seen. The visualized posterior fossa and brain is unremarkable. The visualized orbits and paranasal sinuses are normal. Mild multilevel degenerative disc desiccation. Multilevel spinal canal stenosis secondary to disc pro trusions and marginal osteophytes. Multilevel neural foraminal narrowing secondary to uncovertebral a nd facet arthrosis. The visualized lung apices are clear. IMPRESSION: No neck mass or fluid collection. Several dental cavities are seen Electronically signed by: Alfred Medina MD (06/10/2021 12:49 AM) [facility]
--- NOTE | 2021-06-10 00:56 | PHYS DOC ---
Past Medical History Past Medical History: No Pertinent History, Hypertension Additional Past Medical Histor: GASTRIC REFLUX, PROSTATES ENLARGMENT, HEMEROIDS.2 LEGS INJURY CHILD Past Surgical History: Other Additional Past Surgical Histo: EYE SURG, PROSTATE SX ? UNKNOWN PROCEEDURE Smoking Status: Former Smoker Alcohol Use: None Drug Use: None General Adult EDM: Chief Complaint: DIFFICULTY SWALLOWING HPI: HPI: 75 yo M PMH HTN, GERD and enlarged prostate, presents to the ed with c/o sore throat, dry cough and redness to the front of the throat with decreased oral intake. In ed with caregiver (assists in translating belarusian, declined order planner phone) who reports pt didn't eat today. No known history of covid exposure. Denies any new medications or poorly prepared foods. No known food allergies. No history of allergic reaction, angioedema or anaphylaxis. Denies odynophagia. Review of Systems: Review of Systems: Constitutional: Denies fever or chills. [] Eyes: Denies change in visual acuity. [] HENT: Denies nasal congestion or rhinorrhea Respiratory: Denies cough or shortness of breath. [] Cardiovascular: Denies chest pain or edema. [] GI: Denies abdominal pain, nausea, vomiting, bloody stools or diarrhea. [] Musculoskeletal: Denies back pain or joint pain. [] Integument: Denies diaphoresis or desquamation Neurologic: Denies headache, focal weakness or sensory changes. [] Endocrine: Denies polyuria or polydipsia. [] Lymphatic: Denies swollen glands. [] Psychiatric: Denies depression or anxiety. [] Heart Score: C/O Chest Pain: No Risk Factors: Risk Factors: DM, Current or recent (<one month) smoker, HTN, HLP, family history of CAD, obesity. Risk Scores: Score 0 - 3: 2.5% MACE over next 6 weeks - Discharge Home Score 4 - 6: 20.3% MACE over next 6 weeks - Admit for Clinical Observation Score 7 - 10: 72.7% MACE over next 6 weeks - Early Invasive Strategies Current Medications: Current Medications Medications (Trade) Dose Ordered Sig/Criselda Start Time Stop Time Status Last Admin Dose Admin Info (CONTRAST GIVEN -- Rx MONITORING) 1 each PRN DAILY PRN 06/10/21 00:45 06/12/21 00:44 Iohexol (Omnipaque 300 Mg/ml) 70 ml 1X ONCE 06/10/21 00:45 06/10/21 00:46 DC 06/10/21 00:43 70 ML Vancomycin HCl (Vanco Per Pharmacy) 1 each PRN DAILY PRN 06/09/21 22:30 Vancomycin HCl 1.5 gm/Sodium Chloride 500 ml @ 250 mls/hr 1X ONCE 06/10/21 01:00 06/10/21 02:59 Allergies: Allergies: Allergies Coded Allergies Type Severity Reaction Last Updated Verified No Known Drug Allergies 08/11/17 No Physical Exam: PE: Constitutional: Well developed, well nourished, no acute distress, non-toxic appearance. HENT: Normocephalic, atraumatic, no swelling of tongue, lips or palate, no pharyngeal erythema, Mallampati 4, tonsils approximately 80% oropharyngeal opening w/no erythema/exudates/petechiae, no oral ulcers Eyes: EOMI, conjunctiva normal, no discharge, Neck: Normal range of motion, supple, anterior neck with 6 x 3 cm area of slightly raised erythema with increased warmth, no induration/foot fluctuance/subcutaneous emphysema, no brawny neck Cardiovascular: S1/2 present, regular rhythm Lungs & Thorax: Speaking in full sentences, bilateral equal chest rise, no tachypnea or increased work of breathing, no stridor, no hot potato voice, no dr ooling Abdomen: soft, no tenderness, Skin: Warm, dry, no blisters or desquamation Extremities: No tenderness, no cyanosis, Neurologic: Alert and oriented X 3, normal motor function, normal sensory function, no focal deficits noted. [] Psychologic: Affect normal, judgement normal, mood normal. [] Current Patient Data: Labs: Laboratory Tests Test 06/09/21 22:40 06/09/21 23:40 SARS-CoV-2 Antigen (Rapid) Negative (NEGATIVE) White Blood Count 6.0 x10^3/uL (4.0-11.0) Red Blood Count 5.17 x10^6/uL (4.30-5.70) Hemoglobin 15.5 g/dL (13.0-17.5) Hematocrit 44.8 % (39.0-53.0) Mean Corpuscular Volume 87 fL (79-100) Mean Corpuscular Hemoglobin 30 pg (25-35) Mean Corpuscular Hemoglobin Concent 35 g/dL (31-37) Red Cell Distribution Width 13.5 % (11.5-14.5) Platelet Count 236 x10^3/uL (140-400) Neutrophils (%) (Auto) 67 % (31-73) Lymphocytes (%) (Auto) 23 % (24-48) L Monocytes (%) (Auto) 8 % (0-9) Eosinophils (%) (Auto) 2 % (0-3) Basophils (%) (Auto) 0 % (0-3) Neutrophils # (Auto) 4.0 x10^3/uL (1.8-7.7) Lymphocytes # (Auto) 1.4 x10^3/uL (1.0-4.8) Monocytes # (Auto) 0.5 x10^3/uL (0.0-1.1) Eosinophils # (Auto) 0.1 x10^3/uL (0.0-0.7) Basophils # (Auto) 0.0 x10^3/uL (0.0-0.2) Sodium Level 138 mmol/L (136-145) Potassium Level 3.9 mmol/L (3.5-5.1) Chloride Level 103 mmol/L (98-107) Carbon Dioxide Level 27 mmol/L (21-32) Anion Gap 8 (6-14) Blood Urea Nitrogen 6 mg/dL (8-26) L Creatinine 0.7 mg/dL (0.7-1.3) Estimated GFR (Cockcroft-Gault) 109.6 BUN/Creatinine Ratio 9 (6-20) Glucose Level 98 mg/dL (70-99) Lactic Acid Level 1.3 mmol/L (0.4-2.0) Calcium Level 8.9 mg/dL (8.5-10.1) Total Bilirubin 0.5 mg/dL (0.2-1.0) Aspartate Amino Transferase (AST) 17 U/L (15-37) Alanine Aminotransferase (ALT) 27 U/L (16-63) Alkaline Phosphatase 152 U/L (46-116) H Total Protein 7.1 g/dL (6.4-8.2) Albumin 3.6 g/dL (3.4-5.0) Albumin/Globulin Ratio 1.0 (1.0-1.7) Laboratory Tests 06/09/21 23:40 Laboratory Tests 06/09/21 23:40 Vital Signs: Vital Signs Date Time Temp Pulse Resp B/P (MAP) Pulse Ox O2 Delivery O2 Flow Rate FiO2 06/09/21 22:27 98.1 72 18 160/84 (103) 94 Room Air 98.1 EKG: EKG: [] Radiology/Procedures: Radiology/Procedures: IMAGING REPORT Signed PATIENT: LIDYA VARGAS ACCOUNT: [id number] : 1945 LOCATION: ER AGE: 75 SEX: M EXAM STATUS: REG ER ORD. PHYSICIAN: NAHEED PAUL DO REASON: anterior neck rash/cellulitis PROCEDURE: CT SOFT TISSUE NECK W/CONTRAST CT NECK SOFT TISSUE WITH IV CONTRAST DATE: 06/09/2021 12:15 AM INDICATION: anterior neck rash/cellulitis TECHNIQUE: Axial computed tomography of the neck with intravenous contrast according to the standard neck protocol. 70 cc of Omnipaque 300 was administered intravenously. One or more of the following dose reduction techniques were utilized: Automated exposure control (AEC), Adjustment of mA and/or kV according to patient size, Use of iterative reconstruction technique such as ASiR, CT scan done according to ALARA and image gently/image wisely COMPARISON: None. FINDINGS: No fluid collection. Scattered subcentimeter lymph nodes are seen in the neck. None are pathologically enlarged or abnormally enhancing. The parotid, submandibular, and thyroid glands are normal. The muscles of the neck are normal. Vessels of the neck demonstrate normal course, caliber, and enhancement. Several dental caries are seen. The visualized posterior fossa and brain is unremarkable. The visualized orbits and paranasal sinuses are normal. Mild multilevel degenerative disc desiccation. Multilevel spinal canal stenosis secondary to disc protrusions and marginal osteophytes. Multilevel neural foraminal narrowing secondary to uncovertebral and facet arthrosis. The visualized lung apices are clear. IMPRESSION: No neck mass or fluid collection. Several dental cavities are seen Electronically signed by: Sandra Medina MD (06/10/2021 12:49 AM) [facility] DICTATED and SIGNED BY: SANDRA MEDINA MD DATE: 06/10/21 [id number] 0 Course & Med Decision Making: Course & Med Decision Making Pertinent Labs and Imaging studies reviewed. (See chart for details) Concern for acute pharyngitis in the setting of abnormal rash on anterior neck appears slightly raised, nonpruritic but increased in warmth-cannot recall any injury, scratching or bug bites. Will cover for MRSA cellulitis. Rapid Covid negative. Pharyngeal exudates or erythema or swelling-no signs of angioedema. Tolerates fluids in the ED. Cervical as needed for pain. Will discharge home with strict ED return precautions were given for altered breathing, headache swelling, drooling, speech changes or worsening rash. Encouraged urgent outpatient follow-up with PMD. Life-threatening processes were considered but are low suspicion at this time, given history, physical exam and ED workup. Pt was educated on all prescription medications and adverse effects. All patient's questions were answered and pt was stable at time of discharge. Life/limb-threatening differential includes but is not limited to, aortic dissection/aneurysm, cauda equina syndrome, transverse myelitis, spinal cord/epidural compression syndromes, discitis, spinal stenosis, epidural abscess or hematoma, osteomyelitis, disc herniation, surgical abdomen, stable or unstable fracture, renal/ureteral colic, sepsis, meningitis, musculoskeletal injury, traumatic injury, intraabdominal/retroperitoneal or pelvic bleeding. I have spoken with the patient and/or caregivers. I explained the patient's condition, diagnoses and treatment plan based on the information available to me at this time. I have answered the patient and/or caregiver's questions and addressed any concerns. The patient and/or caregivers have a good understanding of patient's diagnosis, condition and treatment plan as can be expected at this point. Vital signs have been stable. Patient's condition is stable and appropriate for discharge from the emergency department. Patient will pursue further outpatient evaluation with primary care physician or other designated or consulting physician as outlined in the discharge instructions. The patient and/or caregivers are agreeable to this plan of care and follow-up instructions have been explained in detail. The patient and/or caregivers have received these instructions in written form and have expressed an understanding of the discharge instructions. The patient and/or caregivers are aware that any significant change of condition or worsening of symptoms should prompt immediate return to this or the closest emergency department or call to 911. Argelia Disclaimer: Argelia Disclaimer: This electronic medical record was generated, in whole or in part, using a voice recognition dictation system. Departure Departure Impression: Primary Impression: Sore throat Additional Impression: Rash of neck Disposition: HOME / SELF CARE / HOMELESS Condition: STABLE Referrals: KEO SETHI MD (PCP) Follow-up with your primary care physician in 24 to 48 hours OR FOLLOW UP WITH FAMILY MEDICINE: [address] [place] [address] Patient Instructions: Cellulitis, Rash, Viral Pharyngitis Additional Instructions: EMERGENCY DEPARTMENT GENERAL DISCHARGE INSTRUCTIONS Thank you for coming to [facility] Emergency Department (ED) today and trusting us with you care. We trust that you had a positive experience in our Emergency Department. If you wish to speak to the department management, you may call the Director at [phone]. YOUR FOLLOW UP INSTRUCTIONS ARE FOLLOWS: 1. Do you have a private Doctor? If you do not have a private doctor, please ask for a resource list of physicians or clinics that may be able to assist you with follow up care. 2. The Emergency Physicain has interpreted your x-rays. The X-Ray specialist will also review them. If there is a change in the findings, you will be notified in 48 hours when at all possible. 3. A lab test or culture has been done, your results will be reviewed and you will be notified if you need a change in treatment. ADDITIONAL INSTRUCTIONS AND INFORMATION: 1. Your care today has been supervised by a physician who is specially trained in emergency care. Many problems require more than one evaluation for a complete diagnosis and treatment. We recommend that you schedule your follow up appointment as recommended to ensure complete treatment of you illness or injury. If you are unable to obtain follow up care and continue to have a problem, or if your condition worsens, we recommend that you return to the ED. 2. We are not able to safely determine your condition over the phone nor are we able to give sound medical advice over the phone. For these safety reasons, if you call for medical advice we will ask you to come to the ED for further evaluation. 3. If you have any questions regarding these discharge instructions please call the ED at [phone]. SAFETY INFORMATION: In the interest of safety, wellness, and injury prevention; we encourage you to wear your sealbelt, if you smoke; quite smoking, and we encourage family to use a protective helmet for bicycling and other sporting events that present an increased risk for head injury. IF YOUR SYMPTOMS WORSEN OR NEW SYMPTOMS DEVELOP, OR YOU HAVE CONCERNS ABOUT YOUR CONDITION; OR IF YOUR CONDITION WORSENS WHILE YOU ARE WAITING FOR YOUR FOLLOW UP APPOINTMENT; EITHER CONTACT YOUR PRIMARY CARE DOCTOR, THE PHYSICIAN WHOSE NAME AND NUMBER YOU WERE GIVEN, OR RETURN TO THE ED IMMEDIATELY. Scripts Sulfamethoxazole/Trimethoprim (BACTRIM DS TABLET) 1 Each Tablet 1 TAB PO BID for infection for 10 Days, #20 TAB Prov: NAHEED PAUL DO 06/10/21 Cephalexin (CEPHALEXIN) 500 Mg Capsule 1 CAP PO QID for 10 Days, #40 CAP Prov: NAHEED PAUL DO 06/10/21 Benzocaine/Menthol (CEPACOL SORE THROAT LOZENGE) 1 Each Lozenge 1 TAB PO Q4HRS for sore throat for 3 Days, #18 TAB 0 Refills Prov: NAHEED PAUL DO 06/10/21 NAHEED PAUL DO Jun 10, 2021 00:56
[2021-06-10] MEDS ORDERED: VANCOMYCIN 1.5 GM in IV NORMAL SALINE 500ML BAG 500 ML IV ONE (01:00)
[2021-06-10 01:25] VITALS: BP 154/79
[2021-06-10] MEDS ORDERED: SULF1TAB24 PO (01:27)
[2021-06-10] MEDS ORDERED: CEPH500C PO (01:27)
[2021-06-10] MEDS ORDERED: BENZ1LOZ48 PO (01:27)
[2021-06-10] MEDS ORDERED: DEXAMETHASONE 4 MG TABLET PO ONE (02:00)
--- NOTE | 2021-06-11 09:41 | NUR ---
IP: Informed pt of negative covid test. Pt and friend verbalized understanding.
== END 2021-06-10 01:54 | disposition home or self-care (01) ==
LOC: ER 21:54
DX: J02.9 Acute pharyngitis, unspecified (principal); Z20.822 Contact with and (suspected) exposure to COVID-19; R21 Rash and other nonspecific skin eruption; R05 Cough; I10 Essential (primary) hypertension; Z87.891 Personal history of nicotine dependence
CPT/HCPCS: 36415; 70491; 80053; 83605; 85025; 87040; 87070; 87426; 87880; 99285; Q9967; U0003; U0005

== ENCOUNTER 2021-08-04 16:59 | Emergency (ER) | payer OTHER ==
[~2021-08-04] VITALS: Ht 157.5 cm; Wt 47.7 kg
[~2021-08-04 16:59] MED LIST changes: +BENZ1LOZ48 PO; +CEPH500C PO; +SULF1TAB24 PO
--- NOTE | 2021-08-04 17:44 | PHYS DOC ---
Past Medical History Past Medical History: No Pertinent History, Hypertension Additional Past Medical Histor: GASTRIC REFLUX, PROSTATES ENLARGMENT, HEMEROIDS.2 LEGS INJURY CHILD (SONDRA OSULLIVAN Quynh PING PONG TABLE ASSEMBLER) Past Surgical History: Other Additional Past Surgical Histo: EYE SURG, PROSTATE SX ? UNKNOWN PROCEEDURE (SONDRA OSULLIVAN Quynh [employer]ING PONG TABLE ASSEMBLER) Smoking Status: Former Smoker Alcohol Use: None Drug Use: None (SONDRA OSULLIVAN Quynh [employer]ING P[employer] ASSEMBLER) General Adult EDM: Chief Complaint: MULTIPLE COMPLAINTS HPI: HPI: Patient is a 75 year old male with history of hypertension, BPH, who presents the ED today complaining of cough, fever and headache, symptoms began 3 days ago. Patient denies any chest pain or shortness of breath. Patient reports receiving last dose of [employer] vaccine in April 2021. Patient is Romansh speaking and interpretation is provided by the girlfriend to the son (SONDRA OSULLIVAN PING PONG TABLE ASSEMBLER) Review of Systems: Review of Systems: Constitutional: Reports fever Eyes: Denies change in visual acuity. [] HENT: Denies nasal congestion or sore throat. [] Respiratory: Reports cough, denies shortness of breath. [] Cardiovascular: Denies chest pain or edema. [] GI: Denies abdominal pain, nausea, vomiting, bloody stools or diarrhea. [] : Denies dysuria. [] Musculoskeletal: Denies back pain or joint pain. [] Integument: Denies rash. [] Neurologic: Reports headache, denies focal weakness or sensory changes. [] Psychiatric: Denies depression or anxiety. [] (SONDRA OSULLIVAN Quynh PING PONG TABLE ASSEMBLER) Heart Score: C/O Chest Pain: N/A Risk Factors: Risk Factors: DM, Current or recent (<one month) smoker, HTN, HLP, family history of CAD, obesity. Risk Scores: Score 0 - 3: 2.5% MACE over next 6 weeks - Discharge Home Score 4 - 6: 20.3% MACE over next 6 weeks - Admit for Clinical Observation Score 7 - 10: 72.7% MACE over next 6 weeks - Early Invasive Strategies (SONDRA OSULLIVAN PING PONG TABLE ASSEMBLER) Allergies: Allergies: Allergies Coded Allergies Type Severity Reaction Last Updated Verified No Known Drug Allergies 08/11/17 No (MELISSAJOSESONDRA Mcginnis PING PONG TABLE ASSEMBLER) Physical Exam: PE: Constitutional: Well developed, well nourished, no acute distress, non-toxic appearance. [] HENT: Normocephalic, atraumatic, bilateral external ears normal, oropharynx dry, no oral exudates, nose normal. [] Eyes: PERRLA, EOMI, conjunctiva normal, no discharge. [] Neck: Normal range of motion, no tenderness, supple, no stridor. [] Cardiovascular: Tachycardic Lungs & Thorax: Bilateral breath sounds clear to auscultation [] Abdomen: Bowel sounds normal, soft, no tenderness, no masses, no pulsatile masses. [] Skin: Warm, dry, no erythema, no rash. [] Back: No tenderness, no CVA tenderness. [] Extremities: No tenderness, no cyanosis, no clubbing, ROM intact, no edema. [] Neurologic: Alert and oriented X 3, normal motor function, normal sensory function, no focal deficits noted. [] Psychologic: Affect normal, judgement normal, mood normal. [] (SONDRA OSULLIVAN APRN) EKG: EK interpreted by Dr. Kennedy sinus tachycardia heart rate 116 no STEMI [] (SONDRA OSULLIVAN APRN) Radiology/Procedures: Radiology/Procedures: PROCEDURE: PORTABLE CHEST 1V Exam: Chest one view INDICATION: Fever TECHNIQUE: Frontal view of the chest Comparisons: 09/27/2020 FINDINGS: The cardiomediastinal silhouette and pulmonary vessels are within normal limits. Mild interstitial opacities the lung bases. No pleural effusion. IMPRESSION: Mild increased interstitial opacities, may relate to mild edema versus is atypical infectious process. Electronically signed by: Mini Hamilton MD (08/04/2021 6:20 PM) [facility] DICTATED and SIGNED BY: MINI HAMILTON MD DATE: 08/04/21 [id number] (SONDRA OSULLVIAN APRN) Course & Med Decision Making: Course & Med Decision Making pertinent Labs and Imaging studies reviewed. (See chart for details) This is a 75-year-old male patient presenting to the ED today complaining of headache fever and a cough that began 3 days ago. Patient is afebrile in the ED. vitals in the ED temperature 98.2, heart rate 120, O2 sats 97% on room air, blood pressure 147/85-history of hypertension, respiration 21 CBC with a normal WBC, normal hemoglobin and hematocrit, normal platelets, CMP with ALT of 158, patient denies any abdominal pain. Negative rapid Covid test, negative influenza A&B. Chest x-ray noted for mild increased interstitial opacities, may relate to mild edema versus is atypical infectious process. UA noted for moderate amount of leukocytes, 11-22 WBCs, moderate bacteria. Patient was given Rocephin in the ED. He was discharged on Cipro. Cipro was selected because patient's urine culture from last year shows he is susceptible to Cipro. Patient was given 2 L of IV fluids in the ED. Feeling better HR had come down to 98 and trending down. Discharged to home. Follow-up with PCP. Provided patient and family return precautions BPH at discharge was 161/73 HR 97. (SONDRA OSULLIVAN APRN) Course & Med Decision Making I have reviewed and was available for consultation in the emergency department for this patient that was seen by midlevel provider. Agree with plan. Gabriel Cooper DO (GABRIEL COOPER DO) Argelia Disclaimer: Argelia Disclaimer: This electronic medical record was generated, in whole or in part, using a voice recognition dictation system. (SONDRA OSULLIVAN APRN) Departure Departure Impression: Primary Impression: Urinary tract infection Qualified Codes: N39.0 - Urinary tract infection, site not specified Additional Impressions: Fever Qualified Codes: R50.9 - Fever, unspecified Tachycardia Cough Disposition: HOME / SELF CARE / HOMELESS Condition: STABLE Referrals: KEO SETHI MD (PCP) Follow-up in the course of this week Patient Instructions: Cough, Adult, [id number], Fever, Adult, Urinary Tract Infection Additional Instructions: You have urinary tract infection. Please take the prescribed antibiotics until completed. Follow-up with your primary care doctor in the course of this week. Push fluids. Take Tylenol or Motrin as needed for fever. Follow-up with your doctor in the course of this week Scripts Ciprofloxacin Hcl (CIPRO) 500 Mg Tablet 1 TAB PO BID for 7 Days, #14 TAB 0 Refills Prov: SONDRA OSULLIVAN APRN 08/04/21 SONDRA OSULLIVAN APRN Aug 04, 2021 17:44 GABRIEL COOPER DO Aug 05, 2021 01:07
[2021-08-04] MEDS ORDERED: IV NORMAL SALINE 1000ML BAG 1,000 ML IV SCH (17:45)
[2021-08-04 17:56] LABS: BASO % 0 % (0-3); EOS # 0.2 x10^3/uL (0.0-0.7); EOS % 3 % (0-3); HEMOGLOBIN 14.4 g/dL (13.0-17.5); LYMPH # 0.9 x10^3/uL (1.0-4.8); LYMPH % 16 % (24-48); MEAN CORPUSCULAR HEMOGLOBIN 31 pg (25-35); MEAN CORPUSCULAR HGB CONC 35 g/dL (31-37); MEAN CORPUSCULAR VOLUME 87 fL (79-100); MONO # 0.6 x10^3/uL (0.0-1.1); MONO % 10 % (0-9); NEUT # 4.1 x10^3/uL (1.8-7.7); NEUT % 71 % (31-73); PLATELET COUNT 203 x10^3/uL (140-400); RED BLOOD COUNT 4.73 x10^6/uL (4.30-5.70); RED CELL DISTRIBUTION WIDTH 13.5 % (11.5-14.5); WHITE BLOOD COUNT 5.8 x10^3/uL (4.0-11.0)
[2021-08-04 18:11] LABS: CALCIUM 8.6 mg/dL (8.5-10.1); CREATININE 0.7 mg/dL (0.7-1.3); GFR 109.6; POTASSIUM 3.5 mmol/L (3.5-5.1)
[2021-08-04 18:15] LABS: BILIRUBIN,URINE NEGATIVE (NEG); CLARITY,URINE CLOUDY; COLOR,URINE YELLOW; NITRITE,URINE NEGATIVE (NEG); PH,URINE 7.5 (<5.0-8.0); PROTEIN,URINE NEGATIVE (NEG-TRACE); UROBILINOGEN,URINE 0.2 mg/dL (0.2 mg/dL)
[2021-08-04] MEDS ORDERED: ACETAMINOPHEN 500 MG TABLET PO ONE (18:15)
[2021-08-04 18:16] LABS: ALBUMIN 3.4 g/dL (3.4-5.0); ALBUMIN/GLOBULIN RATIO 1.1 (1.0-1.7); MAGNESIUM 2.2 mg/dL (1.8-2.4); TOTAL BILIRUBIN 0.4 mg/dL (0.2-1.0); TOTAL PROTEIN 6.5 g/dL (6.4-8.2)
[2021-08-04 18:22] LABS: AMORPHOUS SEDIMENT,UR PRESENT /HPF; BACTERIA,URINE MODERATE /HPF (0-FEW); RBC,URINE 0 /HPF (0-2)
--- NOTE | 2021-08-04 18:22 | RAD ---
Exam: Chest one view INDICATION: Fever TECHNIQUE: Frontal view of the chest Comparisons: 09/27/2020 FINDINGS: The cardiomediastinal silhouette and pulmonary vessels are within normal limits. Mild interstitial opacities the lung bases. No pleural effusion. IMPRESSION: Mild increased interstitial opacities, may relate to mild edema versus is atypical infectious process . Electronically signed by: Mini Carey MD (08/04/2021 6:20 PM) [place]
[2021-08-04 18:30] LABS: INFLUENZA A PATIENT NEGATIVE (NEGATIVE); INFLUENZA B PATIENT NEGATIVE (NEGATIVE)
[2021-08-04 18:44] VITALS: BP 61/73
--- NOTE | 2021-08-04 18:53 | EKG ---
[facility] [address] [place] [address] Test Date: 2021-08-04 Test Time: 17:36:20 Pat Name: LIDYA VARGAS Department: Room: Gender: M [place]: : 1945 Requested By: SONDRA OSULLIVAN Order Number: [id number] Reading MD: Scott Santoyo Measurements Intervals [place] Rate: 116 P: 54 [place]: 178 QRS: -54 QRSD: 80 T: 28 QT: 308 QTc: 434 Interpretive Statements SINUS TACHYCARDIA ABNORMAL LEFT AXIS DEVIATION LOW LIMB LEAD VOLTAGE QRS(T) CONTOUR ABNORMALITY CONSISTENT WITH INFERIOR INFARCT PROBABLY OLD ABNORMAL ECG RI6.01 No previous ECG available for comparison Electronically Signed On 08-06-2021 13:22:11 CDT by Scott Santoyo
[2021-08-04] MEDS ORDERED: CIPR500T94 PO (18:55)
[2021-08-04] MEDS ORDERED: cefTRIAXone IV Push 1 GM VIAL. IVP ONE (19:00)
--- NOTE | 2021-08-06 10:04 | NUR ---
IP: Informed pt of negative covid test. Pt and girlfriend both verbalized understanding.
== END 2021-08-04 19:05 | disposition home or self-care (01) ==
LOC: ER 16:59
DX: N39.0 Urinary tract infection, site not specified (principal); Z20.822 Contact with and (suspected) exposure to COVID-19; R50.9 Fever, unspecified; R00.0 Tachycardia, unspecified; R05 Cough; I10 Essential (primary) hypertension; Z87.891 Personal history of nicotine dependence
CPT/HCPCS: 36415; 71045; 80053; 81001; 83605; 83735; 83880; 84145; 84484; 85025; 87040; 87077; 87086; 87186; 87426; 87804; 93005; 96361; 96374; 99285; J0696; J7030; U0003; U0005

== ENCOUNTER 2022-04-04 11:32 | Emergency (ER) | payer OTHER ==
[~2022-04-04] VITALS: Ht 160 cm; Wt 63.0 kg
[~2022-04-04 11:32] MED LIST changes: -BENZ1LOZ48 PO; +BENZ1LOZ61 PO; +CIPR500T94 PO
[2022-04-04] MEDS ORDERED: DEXAMETHASONE 4 MG TABLET PO ONE (12:45)
--- NOTE | 2022-04-04 12:59 | RAD ---
EXAMINATION: XR CHEST 1V. HISTORY: 76 years Male Reason: SOA, COUGH COMPARISON: August 04, 2021. Findings: The lungs are hyperinflated with no focal airspace consolidation. Chronic appearing interst itial thickening is again seen. The heart size is normal. There is no effusion or pneumothorax. The mediastinum and kayla appear unremarkable. Impression: COPD. No focal infiltrate. Electronically signed by: Erick Piper MD (04/04/2022 12:56 PM) [id number]
[2022-04-04 13:19] LABS: INFLUENZA B PATIENT NEGATIVE (NEGATIVE)
[2022-04-04 13:22] LABS: INFLUENZA A PATIENT POSITIVE (NEGATIVE)
[2022-04-04] MEDS ORDERED: IBUP-1007 PO (13:51)
[2022-04-04] MEDS ORDERED: ALBU2.5V8 INH (13:51)
[2022-04-04] MEDS ORDERED: METH4TAB2 PO (13:51)
[2022-04-04] MEDS ORDERED: CETI10TA74 PO (13:52)
--- NOTE | 2022-04-04 13:52 | PHYS DOC ---
Past Medical History Past Medical History: No Pertinent History, Hypertension Additional Past Medical Histor: GASTRIC REFLUX, PROSTATES ENLARGMENT, HEMEROIDS.2 LEGS INJURY CHILD Past Surgical History: Other Additional Past Surgical Histo: EYE SURG, PROSTATE SX ? UNKNOWN PROCEEDURE Smoking Status: Never Smoker Alcohol Use: None Drug Use: None General Adult EDM: Chief Complaint: FLU SYMPTOM HPI: HPI: Patient is a 76 year old male who presents with 2 days of headache yesterday, cough, congestion. They were around their niece that had influenza recently. He has a history of hypertension, depression, GERD, prostate enlargement. Denies SOA, chest pain, dizziness, abdominal pain, nausea, vomiting, diarrhea, significant numbness tingling, focal weakness. Rates his headache at a 5 out of 10 at this time. Review of Systems: Review of Systems: Constitutional: Denies fever or chills. [] Eyes: Denies change in visual acuity. [] HENT: + nasal congestion or +sore throat. [] Respiratory: + cough or denies shortness of breath. [] Cardiovascular: Denies chest pain or edema. [] GI: Denies abdominal pain, nausea, vomiting, bloody stools or diarrhea. [] : Denies dysuria. [] Musculoskeletal: Denies back pain or joint pain. +bodyaches[] Integument: Denies rash. [] Neurologic: + headache, denies focal weakness or sensory changes. [] Endocrine: Denies polyuria or polydipsia. [] Lymphatic: Denies swollen glands. [] Psychiatric: Denies depression or anxiety. [] Heart Score: C/O Chest Pain: No Current Medications: Current Medications Medications (Trade) Dose Ordered Sig/Criselda Start Time Stop Time Status Last Admin Dose Admin Dexamethasone (Decadron) 10 mg 1X ONCE 04/04/22 12:45 04/04/22 12:46 DC 04/04/22 13:01 10 MG Allergies: Allergies: Allergies Coded Allergies Type Severity Reaction Last Updated Verified No Known Drug Allergies 08/11/17 No Physical Exam: PE: Constitutional: Well developed, well nourished, no acute distress, non-toxic appearance. [] HENT: Normocephalic, atraumatic, bilateral external ears normal, oropharynx moist, no oral exudates, nose normal. Nasal congestion[] Eyes: PERRLA, EOMI, conjunctiva normal, no discharge. [] Neck: Normal range of motion, no tenderness, supple, no stridor. [] Cardiovascular:Heart rate regular rhythm, no murmur [] Lungs & Thorax: Bilateral upper breath sounds clear and lower diminished to auscultation [] Abdomen: Bowel sounds normal, soft, no tenderness, no masses, no pulsatile masses. [] Skin: Warm, dry, no erythema, no rash. [] Back: No tenderness, no CVA tenderness. [] Extremities: No tenderness, no cyanosis, no clubbing, ROM intact, no edema. [] Neurologic: Alert and oriented X 3, normal motor function, normal sensory functi on, no focal deficits noted. [] Psychologic: Affect normal, judgement normal, mood normal. [] Current Patient Data: Labs: Laboratory Tests Test 04/04/22 12:48 Influenza Type A Antigen Positive (NEGATIVE) *A Influenza Type B Antigen Negative (NEGATIVE) SARS-CoV-2 Antigen (Rapid) Negative (NEGATIVE) Vital Signs: Vital Signs Date Time Temp Pulse Resp B/P (MAP) Pulse Ox O2 Delivery O2 Flow Rate FiO2 04/04/22 11:55 98.3 92 18 114/68 (83) 96 Room Air 98.3 EKG: EKG: [] Radiology/Procedures: Radiology/Procedures: [] Impression: [facility] [id number] [facility] [place], [place] [id number] IMAGING REPORT Signed PATIENT: LIDYA VARGAS ACCOUNT: [id number] : 1945 LOCATION: ER AGE: 76 SEX: M EXAM STATUS: PRE ER ORD. PHYSICIAN: EDUIN BROWNLEE APRN REASON: SOA, COUGH, PROCEDURE: PORTABLE CHEST 1V EXAMINATION: XR CHEST 1V. HISTORY: 76 years Male Reason: SOA, COUGH COMPARISON: August 04, 2021. Findings: The lungs are hyperinflated with no focal airspace consolidation. Chronic appearing interstitial thickening is again seen. The heart size is normal. There is no effusion or pneumothorax. The mediastinum and kayla appear unremarkable. Impression: COPD. No focal infiltrate. Electronically signed by: Sun Piper MD (04/04/2022 12:56 PM) [id number] DICTATED and SIGNED BY: SUN PIPER MD DATE: 04/04/22 7442 Course & Med Decision Making: Course & Med Decision Making Pertinent Labs and Imaging studies reviewed. (See chart for details) COVID-19 CRITERIA: The patient was evaluated during the global COVID-19 pandemic, and that diagnosis was suspected/considered upon their initial presentation. Their evaluation, treatment and testing was consistent with current guidelines for patients who present with complaints or symptoms that may be related to COVID-19. See HPI. Alert and oriented x4. Ambulatory steady gait using a cane. Skin [place] warm and dry. Vital signs within normal limits. No respiratory distress. Lungs are clear in upper lobes but diminished in lower lobes. Postnasal drip. Nasal congestion present. Throat pink without exudates or swelling. Not vaccinated for COVID. No trismus. No rashes. Patient is positive for influenza A. Nonseptic appearing. [] Dragon Disclaimer: Dragon Disclaimer: This electronic medical record was generated, in whole or in part, using a voice recognition dictation system. Departure Departure Impression: Primary Impression: Influenza A Disposition: HOME / SELF CARE / HOMELESS Condition: STABLE Referrals: KEO STEHI MD (PCP) Patient Instructions: Fever, Adult, Influenza, Adult Additional Instructions: Thursday or Thursday this coming week follow-up with your primary care provider. I f you begin having severe shortness of breath, chest pain, dizziness or cannot keep down any food or fluids return emergency room. Drink plenty of fluids to stay hydrated. Take Tylenol or ibuprofen to help with pain and fever. Take medication as prescribed and with food. Scripts Cetirizine Hcl (ZYRTEC) 10 Mg Tablet 1 TAB PO DAILY, #30 TAB Prov: EDUIN BROWNLEE APRN 04/04/22 Ibuprofen (IBUPROFEN) 600 Mg Tablet 600 MG PO PRN Q6HRS PRN for INFLAMMATION, #20 TAB Prov: EDUIN BROWNLEE APRN 04/04/22 Albuterol Sulfate (PROAIR HFA INHALER) 8.5 Gm Hfa.aer.ad 1 PUFF INH PRN Q6HRS PRN for SHORTNESS OF BREATH, #1 EACH 0 Refills Prov: EDUIN BROWNLEE APRN 04/04/22 Methylprednisolone (MEDROL) 4 Mg Tab.ds.pk 1 PKG PO UD, #1 PKG Prov: EDUIN BROWNLEE APRN 04/04/22 EDUIN BROWNLEE APRN April 04, 2022 13:52
[2022-04-04 14:11] VITALS: BP 110/68
== END 2022-04-04 14:10 | disposition home or self-care (01) ==
LOC: ER 11:32
DX: J10.1 Influenza due to other identified influenza virus with other respiratory manifestations (principal); I10 Essential (primary) hypertension; Z20.822 Contact with and (suspected) exposure to COVID-19; K21.9 Gastro-esophageal reflux disease without esophagitis
CPT/HCPCS: 71045; 87428; 99284